=== PATIENT | male | born 1995 | race Caucasian/White ===

== ENCOUNTER 2023-02-28 22:12 | Emergency (ER) | payer SELFPAY ==
[~2023-02-28] VITALS: Ht 188 cm; Wt 75.6 kg
[2023-02-28 22:24] VITALS: TEMP 99
[2023-02-28] MEDS ORDERED: HYDROcodone/acetaminophen 5mg/325mg tablet PO ONE (22:35)
[2023-02-28] MEDS ORDERED: morphine 4 MG/ML inj SYRINge IV ONE (22:50)
[2023-02-28] MEDS ORDERED: ondansetron/PF 4mg/2ml inj IV ONE (22:50)
[2023-03-01 00:12] VITALS: BP 104/69; PULSE 53; O2SAT 95
[2023-03-01] MEDS ORDERED: amoxicillin 250mg capsule PO ONE (00:45)
[2023-03-01] MEDS ORDERED: oxyCODONE IR 5mg (immed. release) tablet PO ONE (00:45)
[2023-03-01] MEDS ORDERED: AMOX500C2 PO (00:49)
[2023-03-01] MEDS ORDERED: OXYC-145 PO ×2 (00:49→00:52)
[2023-03-01 01:08] VITALS: RESP 18
== END 2023-03-01 01:10 | disposition home or self-care (01) ==
LOC: ER 22:13
DX: K04.7 Periapical abscess without sinus (principal)
CPT/HCPCS: 96374; 96375; 99284; J2270; J2405

== ENCOUNTER 2023-10-09 19:56 | Emergency (ER) | payer SELFPAY ==
[~2023-10-09] VITALS: Ht 188 cm; Wt 68.0 kg
[~2023-10-09 19:56] MED LIST: OXYC-145 PO
[2023-10-09 20:18] VITALS: TEMP 98.4
[2023-10-09] MEDS: acetaminophen 325mg tablet PO ONE (20:30)
[2023-10-09] MEDS: TETanus/Pertussis (Acell)/Diphther VAC/PF (Tdap-Adult) 0.5ml syringe IMVAC ONE (20:40)
[2023-10-09] MEDS ORDERED: HYDR-3965 PO (21:54)
[2023-10-09] MEDS: HYDROcodone/acetaminophen 5mg/325mg tablet PO ONE (22:10)
[2023-10-09 22:24] VITALS: BP 111/74; PULSE 78; RESP 16; O2SAT 98
== END 2023-10-09 22:26 | disposition home or self-care (01) ==
LOC: ER 19:56
DX: S62.111A Displaced fracture of triquetrum [cuneiform] bone, right wrist, initial encounter for closed fracture (principal); Z79.899 Other long term (current) drug therapy; V29.99XA Rider (driver) (passenger) of other motorcycle injured in unspecified traffic accident, initial encounter; Y93.89 Activity, other specified; Y92.89 Other specified places as the place of occurrence of the external cause; Y99.8 Other external cause status
CPT/HCPCS: 29125; 71045; 73110; 90471; 90715; 99284; A4565; A6449